=== PATIENT | female | born 1995 | race Caucasian/White ===

== ENCOUNTER 2022-02-14 12:46 | Emergency (ER) | payer OTHER, SELFPAY ==
[2022-02-14 12:46] VITALS: BP 120/79; PULSE 87; RESP 16; TEMP 37.1; O2SAT 98; BMI 23.9
--- NOTE | 2022-02-14 12:56 | RAD_ITS ---
STUDY: X-RAY - RIGHT ANKLE REASON FOR EXAM: Female, 26 years old. Injury. Pain. TECHNIQUE: 3 view(s) of the ankle. COMPARISON: None. FINDINGS: Normal visualized distal tibia and fibula. Normal medial and lateral malleoli. Normal tibiotalar articulation and ankle mortise. Normal visualized talus and calcaneus. The visualized subtalar, talonavicular, calcaneocuboid and tarsal articulations are normal. The soft tissue structures are unremarkable. RAD/Ankle min 3 Views IMPRESSION: Normal x-ray examination of the ankle. Electronically Signed: Christ Barraza, at 13:18 EST ,
[2022-02-14 13:47] VITALS: BP 122/82; PULSE 72; RESP 18; TEMP 36.7; O2SAT 97
[2022-02-14 13:54] VITALS: BP 124/84; PULSE 74; RESP 16; TEMP 36.7; O2SAT 98
--- NOTE | 2022-02-14 13:54 | EDS_ITS ---
HPI History of Present Illness Chief Complaint: Lower Extremity Injury Informant: patient Narrative Narrative: 26-year-old female presenting to the emergency department with right ankle injury. Patient has had prior fractures of the ankle. She states that last n ight she was leaving her mom's house walking down the steps when she sustained an injury to her ankle. She states that she heard multiple pops and notes pain over the entire ankle. She denies [facility] Medical History Right ankle injury Home Medications hydrocodone-acetaminophen 5-325mg 5mg-325mg 1 - 2 tab PO Q4H PRN PRN Pain ##12 06/20/16 [Rx Last Taken Unknown] Allergy/AdvReac Type Severity Reaction Status Date / Time No Known Allergies Allergy Verified 02/14/22 12:48 Social History (Updated 02/14/22 @ 13:[address] Cole Enriquez DO) current gender identity: female Smoking Status: Never smoker ROS ROS ED Constitutional Constitutional ED: Denies chills or weight loss Eyes Eyes: Denies change in vision or diplopia ENT ENT ED: Denies ear pain, rhinorrhea or sore throat Cardiovascular Cardiovascular: Denies chest pain, orthopnea, palpitations or racing heartbeat Respiratory/Chest Respiratory/Chest: Denies cough, dyspnea or orthopnea Gastrointestinal Gastrointestinal: Denies abdominal pain, diarrhea, nausea or vomiting Genitourinary Genitourinary ED: Denies dysuria, hematuria or urinary frequency Musculoskeletal Musculoskeletal: Reports other Details: Ankle pain ; Denies arthralgias or myalgias Integumentary Denies abscess or rash Neurologic Neurologic: Denies headache(s) or weakness Psychiatric Psychiatric: Denies anxiety, depression, suicidal ideation or suicidal thoughts Endocrine Endocrinology: Denies polydipsia, polyphagia or polyuria Allergic/Immunologic Allergic/Immunologic ED: Denies mouth swelling, tongue swelling or urticaria EXAM Physical Exam Const Vital Signs: 02/14/22 12:46 Temperature 98.8 F Temperature Source Temporal Pulse Rate 87 Respiratory Rate 16 Blood Pressure 120/79 Blood Pressure Mean 92 Pulse Ox 98 Oxygen Delivery Method Room Air Positive well nourished and well developed General Appearance ED: well developed HEENT Reports normocephalic, head/scalp atraumatic and moist mucous membranes Eyes PERRL and EOMs intact bilaterally Neck no lymphadenopathy, supple and no JVD Resp normal respiratory effort and clear to auscultation bilaterally Cardio regular rate, regular rhythm and no murmurs GI normal to inspection, nondistended, normoactive bowel sounds and non-tender Palpation: soft Back/Spine no CVA tenderness and normal ROM Extremity Extremity Narrative: There is some swelling and ecchymosis over the ATF of the right ankle. There is no fibular tenderness. No fifth metatarsal tenderness. No medial malleolus tenderness the Achilles palpates intact. Neurovascular appears intact General Extremety ED: Negative for edema General Extremity: Negative for edema Neuro oriented x3 and CN's II-XII intact bilaterally Sensorium / Orientation: alert Motor Exam: strength 5/5 throughout Psych mental status grossly normal Mood & Affect: Negative for depressed or tearful Skin no rashes or lesions noted and no wounds MDM MDM MDM Narrative Medical decision making narrative: My interpretation of the plain films of the right ankle is no acute fracture. Radiology concurs. She be placed in an air splint and crutches as needed return if worsening or concerns Radiography Diagnostic Testing: Clinical Impression(s) from Imaging Studies Ankle X-Ray 02/14/22 12:56 IMPRESSION: Normal x-ray examination of the ankle. Electronically Signed: Christ Barraza, at 13:18 EST , Discharge Plan Triage Chief Complaint: Lower Extremity Injury ED Provider: Cole Enriquez Dx/Rx/DC Orders Prescriptions: No Action hydrocodone-acetaminophen 1 TABLET tablet 1 - 2 tab PO Q4H PRN PRN (Reason: Pain) Qty: 12 0RF Primary Care Provider: Care Physician,No Primary Referrals: Alexandre Camacho MD [Med Staff - Computer Forensics Technician] -
== END 2022-02-14 14:20 | disposition home or self-care (01) ==
PROVIDERS: Emergency Provider Emergency Medicine; Visit Provider Emergency Medicine
DX: S99.911A Unspecified injury of right ankle, initial encounter (principal); X58.XXXA Exposure to other specified factors, initial encounter
CPT/HCPCS: 73610; 99284